=== PATIENT | female | born 1985 | race Caucasian/White ===

== ENCOUNTER 2023-05-30 13:00 | Outpatient (CLI) | payer BC | END 2023-05-30 13:01 | disposition home or self-care (01) | LOC: BICMRI 13:00 | PROVIDERS: ATTEND Family Medicine Sports Medicine | DX: M79.661 Pain in right lower leg (principal); S80.11XA Contusion of right lower leg, initial encounter; S86.011A Strain of right Achilles tendon, initial encounter ==